=== PATIENT | female | born 1975 | race Two or more races ===

== ENCOUNTER 2024-08-07 20:46 | Outpatient (REF) | payer OTHER, SELFPAY | END 2024-08-07 20:47 | disposition home or self-care (01) | LOC: LAB 20:46 | PROVIDERS: Visit Provider Physician Assistant | DX: Z01.419 Encounter for gynecological examination (general) (routine) without abnormal findings (principal) | CPT/HCPCS: 87624; 88175 ==

== ENCOUNTER 2024-12-02 11:25 | Outpatient (OUT) | payer OTHER, SELFPAY ==
--- NOTE | 2024-12-02 11:34 | MM_ITS ---
Patient Name: SAMUEL BIGGS MR#: [id number] : 1975 Exam Date: 12/02/2024 Ordering Doctor: MARGARITO Jean . RADIOLOGY REPORT PROCEDURE: MM TOMOSYNTHESIS SCREENING BI COMPARISON: None. INDICATIONS: Screening Calculator Name NCI Breast Cancer Risk Assessment Tool 5 Year Breast Cancer Risk 0.90% Lifetime Breast Cancer Risk 9.30% Personal Breast Cancer No Personal Ovarian Cancer No Treatments None Family Cancers None LOCATION: [facility] BREAST COMPOSITION: The breasts are almost entirely fatty. FINDINGS: DIAGNOSTIC CATEGORY 1--NEGATIVE. RIGHT BREAST: No significant suspicious finding. LEFT BREAST: No significant suspicious finding. RECOMMENDATIONS: ROUTINE MAMMOGRAM AND CLINICAL EVALUATION IN 12 MONTHS. PLEASE NOTE: A NORMAL MAMMOGRAM DOES NOT EXCLUDE THE POSSIBILITY OF BREAST CANCER. A CLINICALLY SUSPICIOUS PALPABLE LUMP SHOULD BE BIOPSIED. Dictated by: Phillip Tenorio DO on 12/02/2024 at 15:29 Approved by: Phillip Tenorio DO on 12/02/2024 at 15:36
== END 2024-12-02 11:26 | disposition home or self-care (01) ==
PROVIDERS: Visit Provider Physician Assistant
DX: Z12.31 Encounter for screening mammogram for malignant neoplasm of breast (principal)
CPT/HCPCS: 77063; 77067